=== PATIENT | male | born 2000 | race African-American/Black ===

== ENCOUNTER 2024-09-08 06:34 | Emergency (ER) | payer OTHER ==
[~2024-09-08] VITALS: Ht 182.9 cm; Wt 81.8 kg
[2024-09-08 07:00] VITALS: BP 114/56; PULSE 53; RESP 18; TEMP 98; O2SAT 100
[2024-09-08] MEDS ORDERED: KETOROLAC TROMETHAMINE 60 MG/2 ML VIAL IM ONE (08:00)
[2024-09-08] MEDS: METHOCARBAMOL 500 MG TABLET PO ONE (08:50)
[2024-09-08] MEDS: IBUPROFEN 600 MG TABLET PO ONE (08:50)
[2024-09-08] MEDS: LIDOCAINE 5% TRANSDERMAL PATCH TD ONE (08:51)
== END 2024-09-08 09:41 | disposition home or self-care (01) ==
LOC: EMS 06:34
DX: S16.1XXA Strain of muscle, fascia and tendon at neck level, initial encounter (principal); S29.012A Strain of muscle and tendon of back wall of thorax, initial encounter; M54.6 Pain in thoracic spine; F12.90 Cannabis use, unspecified, uncomplicated; V89.2XXA Person injured in unspecified motor-vehicle accident, traffic, initial encounter; Y93.89 Activity, other specified; Y92.410 Unspecified street and highway as the place of occurrence of the external cause; Y99.8 Other external cause status
CPT/HCPCS: 72040; 72072; 99284; Z7502; Z7610